=== PATIENT | male | born 1990 | race African-American/Black ===

== ENCOUNTER 2020-08-01 23:41 | Emergency (ER) | payer SELFPAY ==
[~2020-08-01] VITALS: Ht 180.3 cm; Wt 92.7 kg
[2020-08-02] MEDS ORDERED: FAMO-63 PO (00:07)
--- NOTE | 2020-08-02 00:08 | PHYS DOC ---
Past Medical History Past Medical History: Anxiety, GERD, Hypertension Past Surgical History: No Surgical History Smoking Status: Current Every Day Smoker Alcohol Use: Occasionally Drug Use: None General Adult EDM: Chief Complaint: CHEST PAIN HPI: HPI: 30-year-old male presents via EMS with report of lower substernal chest and epigastric discomfort that started at 2230 while laying down. Patient reportedly took 2 aspirins without relief. Patient does report history of anxiety and heartburn. Patient reports he looked for some Tums or Maalox to take but was unable to find any. Patient reports he did eat "spicy food "prior to symptoms starting. Patient therefore called 911 to be further evaluated and treated. Patient also reports headache upon arrival to the emergency department. Review of Systems: Review of Systems: Constitutional: Denies fever or chills Eyes: Denies redness or eye pain HENT: Denies nasal congestion or sore throat Respiratory: Denies cough or shortness of breath Cardiovascular: Reports chest pain; denies palpitations GI: Reports epigastric abdominal pain; denies nausea or vomiting : Denies dysuria or hematuria Musculoskeletal: Denies back pain or joint pain Integument: Denies rash or skin lesions Neurologic: Reports headache; denies focal weakness or sensory changes Complete systems were reviewed and found to be within normal limits, except as documented in this note. Heart Score: HEART Score for Chest Pain: HEART Score for Chest Pain Response (Comments) Value History Slighlty/Non-Suspicious 0 ECG Normal 0 Age < 45 0 Risk Factors 1 or 2 Risk Factors 1 Total 1 Risk Factors: Risk Factors: DM, Current or recent (<one month) smoker, HTN, HLP, family history of CAD, obesity. Risk Scores: Score 0 - 3: 2.5% MACE over next 6 weeks - Discharge Home Score 4 - 6: 20.3% MACE over next 6 weeks - Admit for Clinical Observation Score 7 - 10: 72.7% MACE over next 6 weeks - Early Invasive Strategies Current Medications: Current Medications Medications (Trade) Dose Ordered Sig/Maryellen Start Time Stop Time Status Last Admin Dose Admin Multi-Ingredient Mouthwash/Gargle (Gi Cocktail) 20 ml 1X ONCE 08/02/20 00:00 08/02/20 00:01 UNV Physical Exam: PE: Constitutional: Well developed, well nourished, no acute distress, non-toxic appearance HENT: Normocephalic, atraumatic Eyes: PERRL, EOMI, conjunctiva normal, no discharge Neck: Normal range of motion, no tenderness, supple, no meningeal signs Lungs & Thorax: No respiratory distress, equal chest rise and fall Abdomen: Soft, no tenderness, no guarding/rebound tenderness/distention Skin: Warm, dry, no erythema, no rash Extremities: No tenderness, ROM intact, no edema Neurologic: Alert and oriented X 3, normal motor function, normal sensory funct ion, no focal deficits noted Psychologic: Affect anxious, judgment normal EKG: EKG: @2351 Sinus tachycardia at 101bpm, NO ST elevation, QRS 82ms, QT/QTc 328/426ms Radiology/Procedures: Radiology/Procedures: PROCEDURE: CHEST AP ONLY XR CHEST 1V 08/01/2020 11:58 PM INDICATION: Chest pain COMPARISON: None available TECHNIQUE: Portable frontal view of the chest is provided. FINDINGS: The cardiomediastinal silhouette is within normal limits. Lungs are clear. There are no significant pleural effusions. There is no pulmonary vascular congestion. No pneumothorax. No suspicious osseous abnormality. IMPRESSION: There is no acute cardiopulmonary process. Electronically signed by: Tami Bailey MD (08/02/2020 12:13 AM) [facility] Course & Med Decision Making: Course & Med Decision Making Pertinent Labs and Imaging studies reviewed. (See chart for details) Patient presents with atypical chest discomfort. Symptoms possibly secondary to gastritis with anxiety component. Screening EKG stable. Chest x-ray without acute process. Symptomatic treatment provided with GI cocktail. Patient also complaining of a headache. Patient is neurologically intact. Afebrile. No meningeal signs noted. Tylenol therefore provided. Patient stable for discharge with outpatient follow-up with PCP/GI. GI referral provided. Discussed findings and plan with patient, who acknowledges understanding and agreement. Dragon Disclaimer: Dragon Disclaimer: This electronic medical record was generated, in whole or in part, using a voice recognition dictation system. Departure Departure Impression: Primary Impression: Atypical chest pain Disposition: 01 DC HOME SELF CARE/HOMELESS Condition: STABLE Referrals: NO PCP (PCP) CHARLES MARCOS MD Patient Instructions: Anxiety and Panic Attacks, Ired-qi-Yooz, Chest Pain (Nonspecific), Dwks-pm-Acbu, Gastritis, Adult, Sksv-ye-Zixt Scripts Famotidine (PEPCID) 20 Mg Tablet 20 MG PO BID PRN for GI SYMPTOMS, #14 TAB Prov: MARQUIS MAS DO 08/02/20 MARQUIS MAS DO Aug 02, 2020 00:08
--- NOTE | 2020-08-02 00:16 | RAD ---
XR CHEST 1V 08/01/2020 11:58 PM INDICATION: Chest pain COMPARISON: None available TECHNIQUE: Portable frontal view of the chest is provided. FINDINGS: The cardiomediastinal silhouette is within normal limits. Lungs are clear. There are no significant pleural effusions. There is no pulmonary vascular congestion. No pneumothora x. No suspicious osseous abnormality. IMPRESSION: There is no acute cardiopulmonary process. Electronically signed by: Tami Bailey MD (08/02/2020 12:13 AM) [facility]
[2020-08-02 00:25] VITALS: BP 126/80
[2020-08-02] MEDS ORDERED: LIDO:MAALOX 1:1 20 ML SINGLE DOSE. PO ONE (00:30)
[2020-08-02] MEDS ORDERED: ACETAMINOPHEN 500 MG TABLET PO ONE (00:30)
--- NOTE | 2020-08-02 03:08 | EKG ---
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
== END 2020-08-02 00:32 | disposition home or self-care (01) ==
LOC: ER 23:41
DX: R07.89 Other chest pain (principal); R10.13 Epigastric pain; R51.9 Headache, unspecified; F41.9 Anxiety disorder, unspecified; K21.9 Gastro-esophageal reflux disease without esophagitis; I10 Essential (primary) hypertension; F17.200 Nicotine dependence, unspecified, uncomplicated
CPT/HCPCS: 71045; 93005; 99283

== ENCOUNTER 2020-08-07 21:00 | Emergency (ER) | payer MEDICAID ==
[~2020-08-07] VITALS: Ht 180.3 cm; Wt 93.0 kg
[~2020-08-07 21:00] MED LIST: FAMO-63 PO
--- NOTE | 2020-08-07 21:40 | ED.ADGEN ---
Past Medical History Past Medical History: Anxiety, GERD, Hypertension Past Surgical History: No Surgical History Smoking Status: Current Every Day Smoker Alcohol Use: Occasionally Drug Use: None General Adult EDM: Chief Complaint: CHEST PAIN HPI: HPI: Patient is a 30 year old AA male who presents to the emergency department with complaints of chest pain since 1800 this evening. Patient reports he woke up with the pain. He reports that the pain is substernal and feels like sharp pressure. The patient reports that the pain increases when he lies back. He denies any nausea, vomiting, abdominal pain, diaphoresis, dizziness, fever, cough, sore throat, body aches, or fatigue. Patient states that he was here 6 days ago for the same problem. Patient reports a history of high blood pressu re, he did not take his medication today. Patient reports that his mother here a few weeks ago from what they believe is heart problems. Patient states his mother was 54 years old at the time of her . Patient currently rates the discomfort 8 out of 10 on the pain scale, he reports that the pain also increases with a deep breath but denies any shortness of breath. Review of Systems: Review of Systems: Complete ROS is negative unless otherwise noted in HPI. Current Medications: Current Medications Medications (Trade) Dose Ordered Sig/Maryellen Start Time Stop Time Status Last Admin Dose Admin Famotidine (Pepcid Vial) 20 mg 1X ONCE 08/07/20 22:30 08/07/20 22:31 DC Ketorolac Tromethamine (Toradol 30mg Vial) 30 mg 1X ONCE 08/07/20 22:30 08/07/20 22:31 DC Multi-Ingredient Mouthwash/Gargle (Gi Cocktail) 20 ml 1X ONCE 08/07/20 22:45 08/07/20 22:46 DC 08/07/20 22:35 20 ML Allergies: Allergies: Allergies Coded Allergies Type Severity Reaction Last Updated Verified No Known Drug Allergies 08/02/20 No Physical Exam: PE: See Above Constitutional: Well developed, well nourished, no acute distress, appears anxious HENT: Normocephalic, atraumatic, bilateral external ears normal, nose normal. [] Eyes: PERRLA, EOMI, conjunctiva normal, no discharge. [] Neck: Normal range of motion, no stridor. [] Cardiovascular:Heart rate regular rhythm Lungs & Thorax: Respirations even and unlabored, no retractions, no respiratory distress, chest nontender Abdomen: soft, epigastric tenderness to palpation, no rebound tenderness, guarding, abdomen is otherwise soft and nontender Skin: Warm, dry, no erythema, no rash. [] Extremities: No cyanosis, ROM intact, no edema. [] Neurologic: Alert and oriented X 3, no focal deficits noted. [] Psychologic: Affect anxious, judgement normal, mood normal. [] Current Patient Data: Labs: Laboratory Tests Test 08/07/20 21:17 White Blood Count 11.6 x10^3/uL (4.0-11.0) H Red Blood Count 4.69 x10^6/uL (4.30-5.70) Hemoglobin 13.1 g/dL (13.0-17.5) Hematocrit 39.1 % (39.0-53.0) Mean Corpuscular Volume 83 fL (79-100) Mean Corpuscular Hemoglobin 28 pg (25-35) Mean Corpuscular Hemoglobin Concent 34 g/dL (31-37) Red Cell Distribution Width 14.4 % (11.5-14.5) Platelet Count 301 x10^3/uL (140-400) Neutrophils (%) (Auto) 75 % (31-73) H Lymphocytes (%) (Auto) 19 % (24-48) L Monocytes (%) (Auto) 5 % (0-9) Eosinophils (%) (Auto) 0 % (0-3) Basophils (%) (Auto) 1 % (0-3) Neutrophils # (Auto) 8.7 x10^3/uL (1.8-7.7) H Lymphocytes # (Auto) 2.2 x10^3/uL (1.0-4.8) Monocytes # (Auto) 0.6 x10^3/uL (0.0-1.1) Eosinophils # (Auto) 0.0 x10^3/uL (0.0-0.7) Basophils # (Auto) 0.1 x10^3/uL (0.0-0.2) Sodium Level 143 mmol/L (136-145) Potassium Level 3.9 mmol/L (3.5-5.1) Chloride Level 105 mmol/L (98-107) Carbon Dioxide Level 25 mmol/L (21-32) Anion Gap 13 (6-14) Blood Urea Nitrogen 26 mg/dL (8-26) Creatinine 1.3 mg/dL (0.7-1.3) Estimated GFR (Cockcroft-Gault) 79.5 BUN/Creatinine Ratio 20 (6-20) Glucose Level 93 mg/dL (70-99) Calcium Level 9.0 mg/dL (8.5-10.1) Magnesium Level 2.1 mg/dL (1.8-2.4) Total Bilirubin 0.4 mg/dL (0.2-1.0) Aspartate Amino Transferase (AST) 28 U/L (15-37) Alanine Aminotransferase (ALT) 68 U/L (16-63) H Alkaline Phosphatase 80 U/L (46-116) Creatine Kinase 323 U/L (39-308) H Creatine Kinase MB (Mass) 1.4 ng/mL (0.0-3.6) Creatine Kinase MB Relative Index 0.4 % (0-4) Troponin I Quantitative < 0.017 ng/mL (0.000-0.055) Total Protein 7.7 g/dL (6.4-8.2) Albumin 3.9 g/dL (3.4-5.0) Albumin/Globulin Ratio 1.0 (1.0-1.7) Lipase 218 U/L (73-393) Laboratory Tests 08/07/20 21:17 Laboratory Tests 08/07/20 21:17 Vital Signs: Vital Signs Date Time Temp Pulse Resp B/P (MAP) Pulse Ox O2 Delivery O2 Flow Rate FiO2 08/07/20 21:13 98.3 76 16 171/81 (111) 100 Room Air 98.3 EKG: EK-sinus rhythm with leftward axis rate 87, no STEMI read by Dr. Barry [][] Heart Score: HEART Score for Chest Pain: HEART Score for Chest Pain Response (Comments) Value History Slighlty/Non-Suspicious 0 ECG Normal 0 Age < 45 0 Risk Factors >3 Risk Factors or Hx CAD 2 Troponin < Normal Limit 0 Total 2 Risk Factors: Risk Factors: DM, Current or recent (<one month) smoker, HTN, HLP, family history of CAD, obesity. Risk Scores: Score 0 - 3: 2.5% MACE over next 6 weeks - Discharge Home Score 4 - 6: 20.3% MACE over next 6 weeks - Admit for Clinical Observation Score 7 - 10: 72.7% MACE over next 6 weeks - Early Invasive Strategies Radiology/Procedures: Radiology/Procedures: PROCEDURE: CHEST AP ONLY XR CHEST 1V INDICATION: Reason: chest pain / Spl. Instructions: / History: . COMPARISON STUDY: 08/01/2020. FINDINGS: Lungs: Normal lung volume. No pulmonary mass or consolidation. The tracheobronc hial tree and hilar structures are normal. Pleura: No pleural effusion or pneumothorax. Heart and Mediastinum: The cardiomediastinal silhouette is normal. The great vessels of the thorax are normal. Bones and Soft Tissues: The bones and soft tissues are within normal limits. IMPRESSION: No acute cardiopulmonary process. Course & Med Decision Making: Course & Med Decision Making Pertinent Labs and Imaging studies reviewed. (See chart for details) With complaints of substernal chest pain that he described as burning that is worse when he lied down and also worse with the deep breath. EKG was unremarkable, chest x-ray is also unremarkable. CBC revealed a white blood cell count of 11.6 otherwise unremarkable; CMP revealed a day ALT of 68, CK of 323 troponin less than 0.017 otherwise unremarkable, patient's lipase was not elevated. His vital signs are stable throughout the emergency department stay. He was given a GI cocktail in the emergency department. He reported relief of the discomfort after taking this medication. Patient admitted that he had forgotten to take his medication today. He reported that he had been taking the Pepcid that was previously prescribed by Dr. Hernandez twice daily as directed every day until the day and that helps the pain subside. I provided patient with GERD diet instructions and encouraged him to follow-up with his primary care doctor or Dr. Martinez as previously recommended, encouraged him to return to the ER symptoms worsen or he develops a fever. Patient verbalized an understanding of home care, medications, follow-up, and return to ED instructions and was in agreement with the plan of care. [] Dragon Disclaimer: Dragon Disclaimer: This electronic medical record was generated, in whole or in part, using a voice recognition dictation system. Departure Departure Impression: Primary Impression: Atypical chest pain Additional Impression: GERD (gastroesophageal reflux disease) Disposition: 01 DC HOME SELF CARE/HOMELESS Condition: STABLE Referrals: NO PCP (PCP) Patient Instructions: Chest Pain (Nonspecific), Lsdn-tt-[id number], Diet for Gastroesophageal Reflux Disease, Adult, Tkns-ej-Yzji, Gastroesophageal Reflux Disease, Adult, Hvgy-ri-Nuka Additional Instructions: Continue taking the medication as prescribed by Dr. Hernandez, this medication is also available [id number]. Follow up with Dr. Martinez or your primary care doctor next week. Follow the diet instructions provided. Return to the ER if symptoms worsen or fever develops. Problem Qualifiers Additional Impression: GERD (gastroesophageal reflux disease) Esophagitis presence: esophagitis presence not specified Qualified Codes: K21.9 - Gastro-esophageal reflux disease without esophagitis MAHENDRA FERREIRA STORE PROTECTION SPECIALIST Aug 07, 2020 21:40
[2020-08-07 21:42] LABS: BASO # 0.1 x10^3/uL (0.0-0.2); BASO % 1 % (0-3); EOS % 0 % (0-3); HEMATOCRIT 39.1 % (39.0-53.0); HEMOGLOBIN 13.1 g/dL (13.0-17.5); LYMPH # 2.2 x10^3/uL (1.0-4.8); LYMPH % 19 % (24-48); MEAN CORPUSCULAR HEMOGLOBIN 28 pg (25-35); MEAN CORPUSCULAR HGB CONC 34 g/dL (31-37); MEAN CORPUSCULAR VOLUME 83 fL (79-100); MONO # 0.6 x10^3/uL (0.0-1.1); MONO % 5 % (0-9); NEUT # 8.7 x10^3/uL (1.8-7.7); NEUT % 75 % (31-73); PLATELET COUNT 301 x10^3/uL (140-400); RED BLOOD COUNT 4.69 x10^6/uL (4.30-5.70); RED CELL DISTRIBUTION WIDTH 14.4 % (11.5-14.5); WHITE BLOOD COUNT 11.6 x10^3/uL (4.0-11.0)
[2020-08-07 21:52] LABS: CREATININE 1.3 mg/dL (0.7-1.3); GFR 79.5; POTASSIUM 3.9 mmol/L (3.5-5.1)
[2020-08-07 21:58] LABS: ALBUMIN 3.9 g/dL (3.4-5.0); MAGNESIUM 2.1 mg/dL (1.8-2.4); TOTAL BILIRUBIN 0.4 mg/dL (0.2-1.0); TOTAL PROTEIN 7.7 g/dL (6.4-8.2)
--- NOTE | 2020-08-07 22:03 | RAD ---
XR CHEST 1V INDICATION: Reason: chest pain / Spl. Instructions: / History: . COMPARISON STUDY: 08/01/2020. FINDINGS: Lungs: Normal lung volume. No pulmonary mass or consolidation. The tracheobronchial tree and hilar st ructures are normal. Pleura: No pleural effusion or pneumothorax. Heart and Mediastinum: The cardiomediastinal silhouette is normal. The great vessels of the thorax ar e normal. Bones and Soft Tissues: The bones and soft tissues are within normal limits. IMPRESSION: No acute cardiopulmonary process. Electronically signed by: Rigo Corona MD (08/07/2020 10:01 PM) [facility]
[2020-08-07] MEDS ORDERED: KETOROLAC 30 MG/ML VIAL. IV ONE (22:30)
[2020-08-07] MEDS ORDERED: FAMOTIDINE 20 MG/2 ML VIAL IVP ONE (22:30)
[2020-08-07] MEDS ORDERED: LIDO:MAALOX 1:1 20 ML SINGLE DOSE. SWSW ONE (22:45)
[2020-08-07 23:00] VITALS: BP 150/83
--- NOTE | 2020-08-10 11:43 | EKG ---
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
== END 2020-08-07 23:31 | disposition home or self-care (01) ==
LOC: ER 21:00
DX: K21.9 Gastro-esophageal reflux disease without esophagitis (principal); R07.89 Other chest pain; R10.13 Epigastric pain; F41.9 Anxiety disorder, unspecified; I10 Essential (primary) hypertension; F17.200 Nicotine dependence, unspecified, uncomplicated
CPT/HCPCS: 36415; 71045; 80053; 82553; 83690; 83735; 84484; 85025; 93005; 99285

== ENCOUNTER 2021-04-22 08:29 | Observation (INO) | payer MEDICAID, OTHER ==
[~2021-04-22] VITALS: Ht 180.3 cm; Wt 105.4 kg
--- NOTE | 2021-04-22 08:57 | PHYS DOC ---
Past Medical History Past Medical History: Anxiety, GERD, Hypertension Past Surgical History: No Surgical History Smoking Status: Current Every Day Smoker Alcohol Use: Occasionally Drug Use: None General Adult EDM: Chief Complaint: ABDOMINAL PAIN HPI: HPI: 30 yo AA M PMH Anxiety, GERD, Hypertension (on nifedipine) and tobacco use presents to the ED with complaints of intermittent, upper abdominal pain for the past 3 days stating that is worse with cigarettes and eating fried pork chops last night. Reports associated nausea. States he has not had a bowel movement in the past 2 days, was yellow-brown in color. Reports history of pancreatitis 45 years ago secondary to alcohol abuse and states his symptoms currently feel like his prior pancreatitis. Last drink was on Tuesday night. Drinks alcohol on the weekends, no history of alcohol trauma. Denies any history of IV drug use or marijuana use. Review of Systems: Review of Systems: Constitutional: Denies fever or chills. [] Eyes: Denies change in visual acuity. [] HENT: Denies nasal congestion or sore throat. [] Respiratory: Denies cough or shortness of breath. [] Cardiovascular: Denies chest pain or edema. [] GI: Denies vomiting, bloody stools or diarrhea. [] : Denies dysuria or hematuria Musculoskeletal: Denies back pain or joint pain. [] Integument: Denies rash or diaphoresis Neurologic: Denies headache, focal weakness or sensory changes. [] Endocrine: Denies polyuria or polydipsia. [] Lymphatic: Denies swollen glands. [] Psychiatric: Denies depression or anxiety. [] Heart Score: C/O Chest Pain: No Risk Factors: Risk Factors: DM, Current or recent (<one month) smoker, HTN, HLP, family history of CAD, obesity. Risk Scores: Score 0 - 3: 2.5% MACE over next 6 weeks - Discharge Home Score 4 - 6: 20.3% MACE over next 6 weeks - Admit for Clinical Observation Score 7 - 10: 72.7% MACE over next 6 weeks - Early Invasive Strategies Allergies: Allergies: Allergies Coded Allergies Type Severity Reaction Last Updated Verified No Known Drug Allergies 08/02/20 No Physical Exam: PE: Constitutional: Afebrile, well nourished, obese, calm at rest but discomfort with movement and abdominal exam HENT: Normocephalic, atraumatic, Eyes: EOMI, conjunctiva normal, no discharge. Neck: Normal range of motion, supple, Cardiovascular: S1/2 present, regular rhythm Lungs & Thorax: Speaking in full sentences, bilateral equal chest rise, no tachypnea or increased work of breathing Abdomen: soft, tender epigastric region with no Perez sign, no rigidity or guarding, no active emesis Skin: Warm, dry, no erythema, no rash. [] Back: No tenderness, no CVA tenderness. [] Extremities: No tenderness, no cyanosis, Neurologic: Alert and oriented X 3, normal motor function, normal sensory function, no focal deficits noted. [] Psychologic: Affect normal, judgement normal, mood normal. [] EKG: EKG: Sinus rhythm 70 bpm, left axis deviation, normal intervals, T wave inversion lead III, no ST elevations or ST depressions Radiology/Procedures: Radiology/Procedures: []IMAGING REPORT Signed PATIENT: JOANN AVILES ACCOUNT: [id number] : 1990 LOCATION: ER AGE: 30 SEX: M EXAM STATUS: REG ER ORD. PHYSICIAN: LACHELLE TOLENTINO DO REASON: abd pain, constipation PROCEDURE: ABDOMEN SUPINE & UPRIGHT Site ID: [id number] EXAMINATION: XR ABDOMEN 2V. HISTORY: 30 years Male Reason: abd pain, constipation COMPARISON: None. FINDINGS: There is mild to moderate amount of fecal material seen in the right colon mostly. No dilated bowel loops seen to suggest obstruction. Nonspecific minimal gaseous distention in small bowel loop in the mid abdomen is seen of questionable significance. No suggestion of urinary tract stones. IMPRESSION: No acute process. Electronically signed by: Holly Crooks MD (04/22/2021 11:11 AM) [id number] DICTATED and SIGNED BY: HOLLY CROOKS MD DATE: 04/22/21 [id number] IMAGING REPORT Signed PATIENT: JOANN AVILES ACCOUNT: [id number] : 1990 LOCATION: ER AGE: 30 SEX: M EXAM STATUS: REG ER ORD. PHYSICIAN: LACHELLE TOLENTINO DO REASON: abd pain PROCEDURE: PORTABLE CHEST 1V XR CHEST 1V History: Abdominal pain Comparison: 08/07/2020 Technique: AP radiograph of the chest. Findings: The lungs are adequately and symmetrically inflated. No airspace consolidation, pleural effusion or pneumothorax. The cardiomediastinal silhouette and pulmonary vasculature are within normal limits. No acute osseous abnormality. Soft tissues are unremarkable. Impression: 1. No acute cardiopulmonary process. Electronically signed by: Matthew Franks MD (04/22/2021 9:16 AM) [id number] DICTATED and SIGNED BY: MATTHEW FRANKS MD DATE: 04/22/21 [id number] IMAGING REPORT Signed PATIENT: JOANN AVILES ACCOUNT: [id number] : 1990 LOCATION: ER AGE: 30 SEX: M EXAM STATUS: REG ER ORD. PHYSICIAN: LACHELLE TOLENTINO DO REASON: abd pain, pancreatitis PROCEDURE: CT ABD PELV W/ IV CONTRST ONLY EXAMINATION: CT abdomen and pelvis with IV contrast. INDICATION:30 years, Male, abdominal pain. TECHNIQUE: Axial CT images of the abdomen and pelvis were obtained. Coronal and sagittal reformatted performed. COMPARISON: None. Exposure: One or more of the following individualized dose reduction techniques were utilized for this examination: 1. Automated exposure control 2. Adjustment of the mA and/or kV according to patient size 3. Use of iterative reconstruction technique. FINDINGS: LOWER CHEST: Unremarkable. ABDOMEN/PELVIS: Liver, spleen, gallbladder, biliary ducts, adrenals and kidneys are unremarkable. No bowel obstruction or wall thickening. Normal appendix. Normal caliber abdominal aorta. Mesenteric arteries and portal vein are patent. No pneumoperitoneum or ascites. No lymphadenopathy in the abdomen or pelvis by size criteria. Normal urinary bladder. Unremarkable prostate. MUSCULOSKELETAL: No acute osseous process. Small fat-containing umbilical hernia. IMPRESSION: No acute intra-abdominal findings. Electronically signed by: Hany Doyle MD (04/22/2021 1:12 PM) [facility] DICTATED and SIGNED BY: HANY DOYLE MD DATE: 04/22/21 [id number] Course & Med Decision Making: Course & Med Decision Making Pertinent Labs and Imaging studies reviewed. (See chart for details) Concern for abdominal pain in the setting of acute pancreatitis, does not meet sepsis criteria. CT abdomen pelvis w/no acute process. Patient made n.p.o. was provided with analgesia. Will admit for further medical management. Patient stable at time of admission and agrees with this plan. I have spoken with the patient and/or caregivers. I have explained the patient's condition, diagnosis and treatment plan based on the information available to me at this time. I have answered the patient's and/or caregivers questions and answered any concerns. The patient and/or caregivers have as good an understanding of the patient's diagnosis, condition and treatment plan as can be expected at this point. The patient has been stabilized within the capability of the emergency department. The patient will be transported for further care and management or will be moved to an observation or inpatient service. I have communicated with the staff or medical practitioner taking over this patient's care. Reina Disclaimer: Reina Disclaimer: This electronic medical record was generated, in whole or in part, using a voice recognition dictation system. Departure Departure Impression: Primary Impression: Acute pancreatitis Disposition: ADMITTED INPATIENT Admitting Physician: SUZI (Dr. Romero) Condition: STABLE Referrals: NO PCP (PCP) LACHELLE TOLENTINO DO Apr 22, 2021 08:57
--- NOTE | 2021-04-22 09:18 | RAD ---
XR CHEST 1V History: Abdominal pain Comparison: 08/07/2020 Technique: AP radiograph of the chest. Findings: The lungs are adequately and symmetrically inflated. No airspace consolidation, pleural effusion or p neumothorax. The cardiomediastinal silhouette and pulmonary vasculature are within normal limits. No acute osseous abnormality. Soft tissues are unremarkable. Impression: 1. No acute cardiopulmonary process. Electronically signed by: Matthew Serna MD (04/22/2021 9:16 AM) [id number]
[2021-04-22 10:02] LABS: BARBITURATES NEG (NEG); BENZODIAZEPINES NEG (NEG); CANNABINOIDS NEG (NEG); COCAINE NEG (NEG); METHADONE NEG (NEG); OPIATES NEG (NEG); PHENCYCLIDINE NEG (NEG)
[2021-04-22 10:03] LABS: AMPHETAMINE/METHAMPHETAMINE NEG (NEG)
[2021-04-22 10:22] LABS: BASO % 1 % (0-3); EOS # 0.1 x10^3/uL (0.0-0.7); EOS % 1 % (0-3); HEMATOCRIT 41.6 % (39.0-53.0); HEMOGLOBIN 14.1 g/dL (13.0-17.5); LYMPH # 2.7 x10^3/uL (1.0-4.8); LYMPH % 35 % (24-48); MEAN CORPUSCULAR HEMOGLOBIN 29 pg (25-35); MEAN CORPUSCULAR HGB CONC 34 g/dL (31-37); MEAN CORPUSCULAR VOLUME 86 fL (79-100); MONO # 0.5 x10^3/uL (0.0-1.1); MONO % 6 % (0-9); NEUT # 4.5 x10^3/uL (1.8-7.7); NEUT % 58 % (31-73); PLATELET COUNT 264 x10^3/uL (140-400); RED BLOOD COUNT 4.81 x10^6/uL (4.30-5.70); RED CELL DISTRIBUTION WIDTH 14.2 % (11.5-14.5); WHITE BLOOD COUNT 7.7 x10^3/uL (4.0-11.0)
[2021-04-22 10:36] LABS: CALCIUM 8.7 mg/dL (8.5-10.1); CREATININE 1.3 mg/dL (0.7-1.3); GFR 79.5; POTASSIUM 3.7 mmol/L (3.5-5.1)
[2021-04-22 10:43] LABS: ALBUMIN 3.4 g/dL (3.4-5.0); DIRECT BILIRUBIN 0.1 mg/dL (0.0-0.2); TOTAL BILIRUBIN 0.3 mg/dL (0.2-1.0); TOTAL PROTEIN 7.6 g/dL (6.4-8.2)
--- NOTE | 2021-04-22 11:13 | RAD ---
Site ID: [id number] EXAMINATION: XR ABDOMEN 2V. HISTORY: 30 years Male Reason: abd pain, constipation COMPARISON: None. FINDINGS: There is mild to moderate amount of fecal material seen in the right colon mostly. No dilated bowel l oops seen to suggest obstruction. Nonspecific minimal gaseous distention in small bowel loop in the m id abdomen is seen of questionable significance. No suggestion of urinary tract stones. IMPRESSION: No acute process. Electronically signed by: Terrell Crooks MD (04/22/2021 11:11 AM) [id number]
[2021-04-22] MEDS ORDERED: IV NORMAL SALINE 1000ML BAG 1,000 ML IV SCH ×2 (11:30→13:00)
[2021-04-22] MEDS ORDERED: CONTRAST GIVEN. MC PRN (12:30)
[2021-04-22] MEDS ORDERED: HYDROmorphone 2 MG/ML VIAL IVP ONE (12:30)
[2021-04-22] MEDS ORDERED: IOHEXOL 300 MG/ML 100ML VIAL. IV ONE (12:30)
--- NOTE | 2021-04-22 13:14 | RAD ---
EXAMINATION: CT abdomen and pelvis with IV contrast. INDICATION:30 years, Male, abdominal pain. TECHNIQUE: Axial CT images of the abdomen and pelvis were obtained. Coronal and sagittal reformatted performed. COMPARISON: None. Exposure: One or more of the following individualized dose reduction techniques were utilized for thi s examination: 1. Automated exposure control 2. Adjustment of the mA and/or kV according to patient size 3. Use of iterative reconstruction technique. FINDINGS: LOWER CHEST: Unremarkable. ABDOMEN/PELVIS: Liver, spleen, gallbladder, biliary ducts, adrenals and kidneys are unremarkable. No bowel obstructio n or wall thickening. Normal appendix. Normal caliber abdominal aorta. Mesenteric arteries and portal vein are patent. No pneumoperitoneum or ascites. No lymphadenopathy in the abdomen or pelvis by size criteria. Normal urinary bladder. Unremarkable prostate. MUSCULOSKELETAL: No acute osseous process. Small fat-containing umbilical hernia. IMPRESSION: No acute intra-abdominal findings. Electronically signed by: Jigna Doyle MD (04/22/2021 1:12 PM) [facility]
[2021-04-22] MEDS ORDERED: IV NORMAL SALINE 1000ML BAG 1,000 ML IV ONE (13:15)
--- NOTE | 2021-04-22 14:37 | EKG ---
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
[2021-04-22] MEDS ORDERED: SENNOSIDES 8.6 MG TABLET PO PRN (15:45)
[2021-04-22] MEDS ORDERED: ONDANSETRON PF 4 MG/2 ML VIAL. IVP PRN (15:45)
[2021-04-22] MEDS ORDERED: ACETAMINOPHEN 325 MG TABLET. PO PRN (15:45)
[2021-04-22] MEDS ORDERED: DOCUSATE SODIUM 100 MG CAPSULE. PO PRN (15:45)
[2021-04-22] MEDS ORDERED: DEXTROSE 50% 25 GM / 50ML DISP.SYRIN. IV PRN (15:45)
[2021-04-22] MEDS ORDERED: MORPHINE SULFATE 2 MG/ML INJ. IV PRN (15:45)
[2021-04-22] MEDS ORDERED: oxyCODONE/APAP 5/325 1 TAB TABLET PO PRN (15:45)
[2021-04-22] MEDS ORDERED: PROCHLORPERAZINE 10 MG/2 ML VIAL. IV PRN (15:45)
--- NOTE | 2021-04-22 15:46 | PDOC1 ---
History and Physical Date of Service: DOS: DATE: 04/22/21 TIME: 15:38 Chief Complaint: Chief Complain: Abdominal pain History of Present Illness: HPI: 30-year-old male with history of anxiety, GERD, hypertension, tobacco and alcohol use who comes in with complaints of intermittent, epigastric abdominal pain that started on Tuesday. Worsens with smoking and eating fried foods that worsened last night. Last alcoholic drink was on Tuesday. Reports associated nausea. States he has not had a bowel movement in the past 2 days, was yellow-brown in color. Reports history of pancreatitis about 5 years ago secondary to alcohol abuse and states his symptoms currently feel like his prior pancreatitis. Last drink was on Tuesday night. Drinks alcohol on the weekends, no history of alcohol trauma. Denies any history of IV drug use or marijuana use. Pain was 10 out of 10 on Tuesday but now it has subsided with medication. Past Medical/Surgical History: PMH/PSH: Past Medical History: Anxiety, GERD, Hypertension Past Surgical History: No Surgical History Allergies: Allergies: Coded Allergies: No Known Drug Allergies (Unverified , 08/02/20) Family History: Family History: Reviewed with no relevant findings Social History: Social History: Smoking Status: Current Every Day Smoker Alcohol Use: Occasionally Drug Use: None Current Medications: Current Medications Current Medications Sodium Chloride 1,000 ml @ 100 drops/ hr Q24H IV ; Start 04/22/21 at 11:30; Stop 04/23/21 at 11:29 Hydromorphone HCl (Dilaudid) 1 mg 1X ONCE IVP Last administered on 04/22/21at 13:00; Start 04/22/21 at 12:30; Stop 04/22/21 at 12:31; Status DC Iohexol (Omnipaque 300 Mg/ml) 75 ml 1X ONCE IV Last administered on 04/22/21at 12:47; Start 04/22/21 at 12:30; Stop 04/22/21 at 12:31; Status DC Info (CONTRAST GIVEN -- Rx MONITORING) 1 each PRN DAILY PRN MC SEE COMMENTS; Start 04/22/21 at 12:30; Stop 04/24/21 at 12:29 Sodium Chloride 1,000 ml @ 100 mls/hr ONCE IV ; Start 04/22/21 at 13:00 Sodium Chloride 1,000 ml @ 100 mls/hr 1X ONCE IV Last administered on at 13:15; Start 04/22/21 at 13:15; Stop 04/22/21 at 23:14 Active Scripts Active Pepcid (Famotidine) 20 Mg Tablet 20 Mg PO BID PRN ROS: Review of Systems Review of System REVIEW OF SYSTEMS: GENERAL: Denies weakness SKIN: No bruising, hair changes or rashes. EYES: No blurred, double or loss of vision. NOSE AND THROAT: No history of nosebleeds, hoarseness or sore throat. HEART: No history of palpitations, chest pain or shortness of breath on exertion. LUNGS: Denies cough, hemoptysis, wheezing or shortness of breath. GASTROINTESTINAL: Positive for abdominal pain and nausea GENITOURINARY: No history of frequency, urgency, hesitancy or nocturia. NEUROLOGIC: Denies history of numbness, tingling, or tremor. PSYCHIATRIC: No history of panic, anxiety or depression. ENDOCRINE: No history of heat or cold intolerance, polyuria or polydipsia. EXTREMITIES: Denies joint pain, pain on walking or stiffness. Physical Exam: Vital Signs: Vital Signs Date Time Temp Pulse Resp B/P (MAP) Pulse Ox O2 Delivery O2 Flow Rate FiO2 04/22/21 10:54 62 18 96/52 (67) 98 Room Air 04/22/21 08:50 98.8 98.8 Physcial Exam: General: Well developed, well nourished, no acute distress, well appearing HEENT: Pupils equally round and reactive to light, EOMI, no discharge, normal conjunctiva Neck: Supple, no nuchal rigidity, no JVD, trachea midline, no tenderness Cardiac: RRR, no murmurs, no gallops, no rubs Chest/Lungs: CTAB, no wheeze, no rhonchi, no crackles Abdomen: soft, non-distended, no guarding, no peritoneal signs, epigastric tenderness Back: No tenderness Extremities: no edema, pulses intact, non-tender,capillary refill <3 sec bilateral upper and lower extremities, Neuro: Alert and oriented x 4, no focal deficits, normal speech Labs: Labs: Laboratory Tests Test 04/22/21 08:52 04/22/21 10:10 Urine Opiates Screen Neg (NEG) Urine Methadone Screen Neg (NEG) Urine Barbiturates Neg (NEG) Urine Phencyclidine Screen Neg (NEG) Urine Amphetamine/Methamphetamine Neg (NEG) Urine Benzodiazepines Screen Neg (NEG) Urine Cocaine Screen Neg (NEG) Urine Cannabinoids Screen Neg (NEG) Urine Ethyl Alcohol Neg (NEG) White Blood Count 7.7 x10^3/uL (4.0-11.0) Red Blood Count 4.81 x10^6/uL (4.30-5.70) Hemoglobin 14.1 g/dL (13.0-17.5) Hematocrit 41.6 % (39.0-53.0) Mean Corpuscular Volume 86 fL (79-100) Mean Corpuscular Hemoglobin 29 pg (25-35) Mean Corpuscular Hemoglobin Concent 34 g/dL (31-37) Red Cell Distribution Width 14.2 % (11.5-14.5) Platelet Count 264 x10^3/uL (140-400) Neutrophils (%) (Auto) 58 % (31-73) Lymphocytes (%) (Auto) 35 % (24-48) Monocytes (%) (Auto) 6 % (0-9) Eosinophils (%) (Auto) 1 % (0-3) Basophils (%) (Auto) 1 % (0-3) Neutrophils # (Auto) 4.5 x10^3/uL (1.8-7.7) Lymphocytes # (Auto) 2.7 x10^3/uL (1.0-4.8) Monocytes # (Auto) 0.5 x10^3/uL (0.0-1.1) Eosinophils # (Auto) 0.1 x10^3/uL (0.0-0.7) Basophils # (Auto) 0.0 x10^3/uL (0.0-0.2) Sodium Level 139 mmol/L (136-145) Potassium Level 3.7 mmol/L (3.5-5.1) Chloride Level 103 mmol/L (98-107) Carbon Dioxide Level 26 mmol/L (21-32) Anion Gap 10 (6-14) Blood Urea Nitrogen 16 mg/dL (8-26) Creatinine 1.3 mg/dL (0.7-1.3) Estimated GFR (Cockcroft-Gault) 79.5 Glucose Level 97 mg/dL (70-99) Calcium Level 8.7 mg/dL (8.5-10.1) Total Bilirubin 0.3 mg/dL (0.2-1.0) Direct Bilirubin 0.1 mg/dL (0.0-0.2) Aspartate Amino Transf (AST/SGOT) 33 U/L (15-37) Alanine Aminotransferase (ALT/SGPT) 48 U/L (16-63) Alkaline Phosphatase 87 U/L (46-116) Creatine Kinase 276 U/L (39-308) Troponin I Quantitative 0.017 ng/mL (0.000-0.055) Total Protein 7.6 g/dL (6.4-8.2) Albumin 3.4 g/dL (3.4-5.0) Lipase 1527 U/L (73-393) Laboratory Tests Test 04/22/21 08:52 04/22/21 10:10 Urine Opiates Screen Neg (NEG) Urine Methadone Screen Neg (NEG) Urine Barbiturates Neg (NEG) Urine Phencyclidine Screen Neg (NEG) Urine Amphetamine/Methamphetamine Neg (NEG) Urine Benzodiazepines Screen Neg (NEG) Urine Cocaine Screen Neg (NEG) Urine Cannabinoids Screen Neg (NEG) Urine Ethyl Alcohol Neg (NEG) White Blood Count 7.7 x10^3/uL (4.0-11.0) Red Blood Count 4.81 x10^6/uL (4.30-5.70) Hemoglobin 14.1 g/dL (13.0-17.5) Hematocrit 41.6 % (39.0-53.0) Mean Corpuscular Volume 86 fL (79-100) Mean Corpuscular Hemoglobin 29 pg (25-35) Mean Corpuscular Hemoglobin Concent 34 g/dL (31-37) Red Cell Distribution Width 14.2 % (11.5-14.5) Platelet Count 264 x10^3/uL (140-400) Neutrophils (%) (Auto) 58 % (31-73) Lymphocytes (%) (Auto) 35 % (24-48) Monocytes (%) (Auto) 6 % (0-9) Eosinophils (%) (Auto) 1 % (0-3) Basophils (%) (Auto) 1 % (0-3) Neutrophils # (Auto) 4.5 x10^3/uL (1.8-7.7) Lymphocytes # (Auto) 2.7 x10^3/uL (1.0-4.8) Monocytes # (Auto) 0.5 x10^3/uL (0.0-1.1) Eosinophils # (Auto) 0.1 x10^3/uL (0.0-0.7) Basophils # (Auto) 0.0 x10^3/uL (0.0-0.2) Sodium Level 139 mmol/L (136-145) Potassium Level 3.7 mmol/L (3.5-5.1) Chloride Level 103 mmol/L (98-107) Carbon Dioxide Level 26 mmol/L (21-32) Anion Gap 10 (6-14) Blood Urea Nitrogen 16 mg/dL (8-26) Creatinine 1.3 mg/dL (0.7-1.3) Estimated GFR (Cockcroft-Gault) 79.5 Glucose Level 97 mg/dL (70-99) Calcium Level 8.7 mg/dL (8.5-10.1) Total Bilirubin 0.3 mg/dL (0.2-1.0) Direct Bilirubin 0.1 mg/dL (0.0-0.2) Aspartate Amino Transf (AST/SGOT) 33 U/L (15-37) Alanine Aminotransferase (ALT/SGPT) 48 U/L (16-63) Alkaline Phosphatase 87 U/L (46-116) Creatine Kinase 276 U/L (39-308) Troponin I Quantitative 0.017 ng/mL (0.000-0.055) Total Protein 7.6 g/dL (6.4-8.2) Albumin 3.4 g/dL (3.4-5.0) Lipase 1527 U/L (73-393) Images: Images PROCEDURE: PORTABLE CHEST 1V Impression: 1. No acute cardiopulmonary process. PROCEDURE: CT ABD PELV W/ IV CONTRST ONLY EXAMINATION: CT abdomen and pelvis with IV contrast. INDICATION:30 years, Male, abdominal pain. TECHNIQUE: Axial CT images of the abdomen and pelvis were obtained. Coronal and sagittal reformatted performed. COMPARISON: None. Exposure: One or more of the following individualized dose reduction techniques were utilized for this examination: 1. Automated exposure control 2. Adjustment of the mA and/or kV according to patient size 3. Use of iterative reconstruction technique. FINDINGS: LOWER CHEST: Unremarkable. ABDOMEN/PELVIS: Liver, spleen, gallbladder, biliary ducts, adrenals and kidneys are unremarkable. No bowel obstruction or wall thickening. Normal appendix. Normal caliber abdominal aorta. Mesenteric arteries and portal vein are patent. No pneumoperitoneum or ascites. No lymphadenopathy in the abdomen or pelvis by size criteria. Normal urinary bladder. Unremarkable prostate. MUSCULOSKELETAL: No acute osseous process. Small fat-containing umbilical hernia. IMPRESSION: No acute intra-abdominal findings. Assessment/Plan Assessment/Plan Acute abdominal pain concerning for acute pancreatitis. Elevated lipase Alcohol misuse Tobacco misuse Admit to hospitalist service for further management Review for recent medication changes Reviewed tobacco or alcohol abuse Obtain lipid panel If dilated CBD or intrahepatic biliary ducts, consider GI consult and MRCP Clear liquid diet IV morphine PRN SCD and ambulation for DVT prophylaxis Protonix GI prophylaxis ADA diet CODE STATUS full Discussed with RN and SW Disposition inpatient management as above DPOA: Sister, Karine Harvey Smoking cessation: Total time spent was 12 minutes in face to face counseling. Patient has agreed to consider nicotine patches/gum or to start on Varnicline when discharged Justifications for Admission Other Justification PA STEWARD MD Apr 22, 2021 15:46
[2021-04-22] MEDS: MORPHINE SULFATE 2 MG/ML INJ. IVP PRN ×2 (15:57→22:49)
[2021-04-22] MEDS: IV NORMAL SALINE 1000ML BAG 1,000 ML IV SCH ×2 (16:00→22:49)
[2021-04-22 16:26] VITALS: BP 115/68
[2021-04-22] MEDS ORDERED: FAMOTIDINE 20 MG TABLET. PO PRN (18:00)
[2021-04-22 19:00] VITALS: BP 105/61
[2021-04-22] MEDS: oxyCODONE/APAP 5/325 1 TAB TABLET PO PRN (19:47)
[2021-04-22 23:00] VITALS: BP 124/77
[2021-04-23 03:00] VITALS: BP 116/63
[2021-04-23] MEDS: oxyCODONE/APAP 5/325 1 TAB TABLET PO PRN ×2 (06:31→09:56)
[2021-04-23] MEDS: IV NORMAL SALINE 1000ML BAG 1,000 ML IV SCH (06:32)
[2021-04-23 07:00] VITALS: BP 129/71
[2021-04-23] MEDS ORDERED: PANTOPRAZOLE 40 MG TABLET.DR. PO SCH (07:30)
[2021-04-23 07:39] LABS: BASO % 0 % (0-3); EOS # 0.1 x10^3/uL (0.0-0.7); EOS % 1 % (0-3); HEMATOCRIT 40.2 % (39.0-53.0); HEMOGLOBIN 13.6 g/dL (13.0-17.5); LYMPH # 2.6 x10^3/uL (1.0-4.8); LYMPH % 41 % (24-48); MEAN CORPUSCULAR HEMOGLOBIN 29 pg (25-35); MEAN CORPUSCULAR HGB CONC 34 g/dL (31-37); MEAN CORPUSCULAR VOLUME 87 fL (79-100); MONO # 0.3 x10^3/uL (0.0-1.1); MONO % 5 % (0-9); NEUT # 3.3 x10^3/uL (1.8-7.7); NEUT % 52 % (31-73); PLATELET COUNT 239 x10^3/uL (140-400); RED BLOOD COUNT 4.64 x10^6/uL (4.30-5.70); RED CELL DISTRIBUTION WIDTH 14.3 % (11.5-14.5); WHITE BLOOD COUNT 6.3 x10^3/uL (4.0-11.0)
[2021-04-23 07:51] LABS: CALCIUM 8.1 mg/dL (8.5-10.1); CREATININE 1.2 mg/dL (0.7-1.3); GFR 87.2; MAGNESIUM 1.9 mg/dL (1.8-2.4); PHOSPHORUS 3.6 mg/dL (2.6-4.7); POTASSIUM 3.8 mmol/L (3.5-5.1)
[2021-04-23] MEDS ORDERED: SERTRALINE 50 MG TABLET. PO SCH (09:00)
--- NOTE | 2021-04-23 10:06 | DISCH ---
DISCHARGE INSTRUCTIONS Condition on Discharge Condition on Discharge: Stable Activity After Discharge Activity Instructions for Disc: Activity as tolerated Exercise Instruction after Dis: Walk 15 min, 3 x per day Driving Instructions after Dis: Do not drive today Diet after Discharge Diet after Discharge: Regular Follow-Up Follow up with: PCP within 2 weeks of discharge PA STEWARD MD Apr 23, 2021 10:06
[2021-04-23 11:05] VITALS: BP 119/74
--- NOTE | 2021-04-23 11:23 | NUR ---
SW following. Discussed with RN, pt from home, room air, regular diet. Rapid COVID-19 negative. Discharge order for home with self care. RN advised no SW needs.
--- NOTE | 2021-04-23 14:02 | NUR ---
pt was discharged home with self care. no meds were prescribed for pt at home. he was given info on a GERD diet and to take pepcid if he needed to at home for GI upset. was walked out to the main entrance and picked up by a friend. Angel Koenig RN
--- NOTE | 2021-05-03 16:40 | PDOC3 ---
[facility]-Discharge Summary Date of Admission: Date of Admission: Apr 22, 2021 Date of Discharge: Date of Discharge: Apr 23, 2021 Discharge Diagnosis: Discharge Diagnosis: Acute abdominal pain concerning for acute pancreatitis. Elevated lipase Alcohol misuse Tobacco misuse Hospital Course: Hospital Course: 30-year-old male with history of anxiety, GERD, hypertension, tobacco and alcohol use who comes in with complaints of intermittent, epigastric abdominal pain that started on Tuesday. Worsens with smoking and eating fried foods that worsened last night. Last alcoholic drink was on Tuesday. Reports associated nausea. States he has not had a bowel movement in the past 2 days, was yellow-brown in color. Reports history of pancreatitis about 5 years ago secondary to alcohol abuse and states his symptoms currently feel like his prior pancreatitis. Last drink was on Tuesday night. Drinks alcohol on the weekends, no history of alcohol trauma. Denies any history of IV drug use or marijuana use. Pain was 10 out of 10 on Tuesday but now it has subsided with medication. By day of discharge, pt was clinically stable and ready for discharge. Rest of hospital course was uneventful Disposition: Disposition/Orders: D/C to Home Activity: Activity: Resume previous activity Diet: Diet: Soft Medications: Home Meds Active Scripts Famotidine (PEPCID) 20 Mg Tablet, 20 MG PO BID PRN for GI SYMPTOMS, #14 TAB Prov:MARQUIS MAS DO 08/02/20 Scheduled PRN Famotidine (Pepcid), 20 MG PO BID PRN for GI SYMPTOMS Total Time: Total Time: Total time spent was 32 minutes in preparing scripts, discharge planning with SW and RN, and preparing this discharge summary. Patient seen and examined on day of discharge. Justicifation of Admission Dx: Justifications for Admission: Justification of Admission Dx: Yes (Acute pancreatitis) PA STEWARD MD May 03, 2021 16:40
== END 2021-04-23 12:35 | disposition home or self-care (01) ==
LOC: ER 08:29 → INTOOBSV 10:52 → 5 SOUTH 10:52
PROVIDERS: ADMIT Internal Medicine; ATTEND Internal Medicine
DX: K85.90 Acute pancreatitis without necrosis or infection, unspecified (principal); K42.9 Umbilical hernia without obstruction or gangrene; K59.00 Constipation, unspecified; Z20.822 Contact with and (suspected) exposure to COVID-19; I10 Essential (primary) hypertension; F10.10 Alcohol abuse, uncomplicated; K21.9 Gastro-esophageal reflux disease without esophagitis; F17.200 Nicotine dependence, unspecified, uncomplicated; Z79.899 Other long term (current) drug therapy
CPT/HCPCS: 36415; 71045; 74021; 74177; 80048; 80061; 80076; 80307; 82550; 83690; 83735; 84100; 84484; 85025; 87426; 93005; 96361; 96374; 96375; 96376; 99285; J1170; J2270; J7030; Q9967; U0003; U0005; G0378; G0379

== ENCOUNTER 2021-05-11 19:25 | Emergency (ER) | payer OTHER ==
[~2021-05-11] VITALS: Ht 180.3 cm; Wt 121.0 kg
[2021-05-11 20:49] VITALS: BP 155/111
[2021-05-11] MEDS ORDERED: BENZ100C PO (22:13)
[2021-05-11] MEDS ORDERED: CHLO1TB. PO (22:13)
--- NOTE | 2021-05-11 22:14 | PHYS DOC ---
Past Medical History Past Medical History: Anxiety, GERD, Hypertension Additional Past Medical Histor: Pancreatitis Past Surgical History: No Surgical History Smoking Status: Never Smoker Alcohol Use: Occasionally Drug Use: None General Adult EDM: Chief Complaint: Congestion HPI: HPI: Patient is a 30 year old male with history of hypertension and anxiety who presents the ED today to be evaluated for congestion. Patient states symptoms have been going for 3 days. He states 3 days ago he got exposed to children with RSV. Denies any fever. He states he had COVID-19 in September and does not want to be tested for it. He states he did not get the Covid vaccine Review of Systems: Review of Systems: Constitutional: Denies fever or chills. [] Eyes: Denies change in visual acuity. [] HENT: Reports nasal congestion, denies sore throat. [] Respiratory: Reports cough, denies shortness of breath. [] Cardiovascular: Denies chest pain or edema. [] GI: Denies abdominal pain, nausea, vomiting, bloody stools or diarrhea. [] : Denies dysuria. [] Musculoskeletal: Denies back pain or joint pain. [] Integument: Denies rash. [] Neurologic: Denies headache, focal weakness or sensory changes. [] Psychiatric: Denies depression or anxiety. [] Heart Score: C/O Chest Pain: N/A Risk Factors: Risk Factors: DM, Current or recent (<one month) smoker, HTN, HLP, family history of CAD, obesity. Risk Scores: Score 0 - 3: 2.5% MACE over next 6 weeks - Discharge Home Score 4 - 6: 20.3% MACE over next 6 weeks - Admit for Clinical Observation Score 7 - 10: 72.7% MACE over next 6 weeks - Early Invasive Strategies Allergies: Allergies: Allergies Coded Allergies Type Severity Reaction Last Updated Verified No Known Drug Allergies 08/02/20 No Physical Exam: PE: Constitutional: Well developed, well nourished, no acute distress, non-toxic appearance. [] HENT: Normocephalic, atraumatic, bilateral external ears normal, oropharynx moist, no oral exudates, nose normal. [] Eyes: PERRLA, EOMI, conjunctiva normal, no discharge. [] Neck: Normal range of motion, no tenderness, supple, no stridor. [] Cardiovascular:Heart rate regular rhythm, no murmur [] Lungs & Thorax: Bilateral breath sounds clear to auscultation [] Abdomen: Bowel sounds normal, soft, no tenderness, no masses, no pulsatile masses. [] Skin: Warm, dry, no erythema, no rash. [] Back: No tenderness, no CVA tenderness. [] Extremities: No tenderness, no cyanosis, no clubbing, ROM intact, no edema. [] Neurologic: Alert and oriented X 3, normal motor function, normal sensory function, no focal deficits noted. [] Psychologic: Affect normal, judgement normal, mood normal. [] Current Patient Data: Vital Signs: Vital Signs Date Time Temp Pulse Resp B/P (MAP) Pulse Ox O2 Delivery O2 Flow Rate FiO2 05/11/21 20:49 98.5 69 18 155/111 (126) 96 Room Air 98.5 EKG: EKG: [] Radiology/Procedures: Radiology/Procedures: [] Course & Med Decision Making: Course & Med Decision Making Pertinent Labs and Imaging studies reviewed. (See chart for details) This a 30-year-old male patient presenting to the ED today with cough and congestion that began 3 days ago after being exposed to RSV. Informed patient we did not do RSV testing on adults in the ED. Supportive care measures recommended. Discharged home Reina Disclaimer: Reina Disclaimer: This electronic medical record was generated, in whole or in part, using a voice recognition dictation system. Departure Departure Impression: Primary Impression: Cough Additional Impression: URI (upper respiratory infection) Qualified Codes: J06.9 - Acute upper respiratory infection, unspecified Disposition: HOME / SELF CARE / HOMELESS Condition: STABLE Referrals: UNKNOWN PCP NAME (PCP) follow up with your doctor in 1 week Patient Instructions: Cough, Adult, [id number], Upper Respiratory Infection, Adult, [id number] Additional Instructions: You were evaluated in the emergency room with symptoms consistent of an upper respiratory infection. Take Tylenol or Motrin as needed for fever or pain. Take the prescribed medications as needed for your symptoms. Follow-up with your doctor in 1 to 2 weeks, rest, push fluids. Maintain good hand hygiene Scripts Chlorphen/Dm/Acetaminophen/Gg (CORICIDIN HBP DAY-NIGHT PACK) 1 Each Tb.cp.seq 1 CAP PO BID for 14 Days, #28 CAP 0 Refills Prov: FIDELINA VELÁZQUEZ APRN 05/11/21 Benzonatate (TESSALON PERLE) 100 Mg Capsule 1 CAP PO TID, #30 CAP Prov: FIDELINA VELÁZQUEZ APRN 05/11/21 FIDELINA VELÁZQUEZ APRN May 11, 2021 22:14
== END 2021-05-11 22:30 | disposition home or self-care (01) ==
LOC: ER 19:25
DX: J06.9 Acute upper respiratory infection, unspecified (principal); K21.9 Gastro-esophageal reflux disease without esophagitis; I10 Essential (primary) hypertension
CPT/HCPCS: 99283

== ENCOUNTER 2021-08-07 06:45 | Emergency (ER) | payer OTHER ==
[~2021-08-07] VITALS: Ht 180.3 cm; Wt 100.0 kg
[~2021-08-07 06:45] MED LIST changes: +BENZ100C PO; +CHLO1TB. PO
--- NOTE | 2021-08-07 07:36 | PHYS DOC ---
Past Medical History Past Medical History: Anxiety, GERD, Hypertension Additional Past Medical Histor: Pancreatitis Past Surgical History: No Surgical History Smoking Status: Never Smoker Alcohol Use: None Drug Use: None Adult General Chief Complaint Chief Complaint: HEADACHE HPI HPI Patient is a 31 year old male present emergency department for 2 primary complaints the first of which is a migraine headache that has been going on for 2 days. He says it is pounding in the bilateral frontal area and has been constant for the 2 past days despite taking Tylenol for his pain. He says that he has not had migraine headaches recently and the last one he had he thinks was over 2 years ago. He says that this feels the same as the migraine headaches he experienced when he was younger. He says he has photophobia but no neck stiffness nausea vomiting fevers chills unilateral weakness numbness or tingling. Patient says that he also started experiencing chest pain last night that he describes as a sore sensation on the left side of his chest. He says it does not radiate to cause him shortness of breath diaphoresis nausea or vomiting and is not associate exertion. He says it does get worse with movements and palpation but he denies any exertion trauma or overuse. He is in no acute distress with normal vital signs and has a PERC score equal to 0. Review of Systems Review of Systems Constitutional: Denies fever or chills [] Eyes: Denies change in visual acuity, redness, or eye pain [] HENT: Denies nasal congestion or sore throat [] Respiratory: Denies cough or shortness of breath [] Cardiovascular: +CP GI: Denies abdominal pain, nausea, vomiting, bloody stools or diarrhea [] : Denies dysuria or hematuria [] Musculoskeletal: Denies back pain or joint pain [] Integument: Denies rash or skin lesions [] Neurologic: + headache. No focal weakness or sensory changes [] Endocrine: Denies polyuria or polydipsia [] All other systems were reviewed and found to be within normal limits, except as documented in this note. Current Medications Current Medications Current Medications Medications (Trade) Dose Ordered Sig/Maryellen Start Time Stop Time Status Last Admin Dose Admin Aspirin (Aspirin Chewable) 324 mg 1X ONCE 08/07/21 08:00 08/07/21 08:01 DC 08/07/21 08:13 324 MG Diphenhydramine HCl (Benadryl) 50 mg 1X ONCE 08/07/21 08:00 08/07/21 08:01 DC 08/07/21 08:18 50 MG Ketorolac Tromethamine (Toradol 15mg Vial) 15 mg 1X ONCE 08/07/21 08:00 08/07/21 08:01 DC 08/07/21 08:16 15 MG Prochlorperazine Edisylate (Compazine) 10 mg 1X ONCE 08/07/21 08:00 08/07/21 08:01 DC 08/07/21 08:21 10 MG Sodium Chloride 1,000 ml @ 1,000 mls/hr 1X ONCE 08/07/21 08:00 08/07/21 08:59 DC 08/07/21 08:12 1,000 MLS/HR Allergies Allergies Allergies Coded Allergies Type Severity Reaction Last Updated Verified No Known Drug Allergies 08/02/20 No Physical Exam Physical Exam Constitutional: Well developed, well nourished, no acute distress, non-toxic appearance. [] HENT: Normocephalic, atraumatic, bilateral external ears normal, oropharynx moist, no oral exudates, nose normal. [] Eyes: PERRLA, EOMI, conjunctiva normal, no discharge. [] Neck: Normal range of motion, no tenderness, supple, no stridor. [] Cardiovascular:Heart rate regular rhythm, no murmur [] Lungs & Thorax: Bilateral breath sounds clear to auscultation. + L upper chest wall reproducible ttp. Abdomen: Bowel sounds normal, soft, no tenderness, no masses, no pulsatile masses. [] Skin: Warm, dry, no erythema, no rash. [] Back: No tenderness, no CVA tenderness. [] Extremities: No tenderness, no cyanosis, no clubbing, ROM intact, no edema. [] Neurologic: Alert and oriented X 3, normal motor function, normal sensory function, no focal deficits noted. [] Psychologic: Affect normal, judgement normal, mood normal. [] Current Patient Data Vital Signs Vital Signs Date Time Temp Pulse Resp B/P (MAP) Pulse Ox O2 Delivery O2 Flow Rate FiO2 08/07/21 07:32 99.3 87 17 147/87 (107) 99 Room Air 99.3 Lab Values Laboratory Tests Test 08/07/21 08:05 White Blood Count 7.1 x10^3/uL (4.0-11.0) Red Blood Count 4.70 x10^6/uL (4.30-5.70) Hemoglobin 13.7 g/dL (13.0-17.5) Hematocrit 41.0 % (39.0-53.0) Mean Corpuscular Volume 87 fL (79-100) Mean Corpuscular Hemoglobin 29 pg (25-35) Mean Corpuscular Hemoglobin Concent 33 g/dL (31-37) Red Cell Distribution Width 15.2 % (11.5-14.5) H Platelet Count 308 x10^3/uL (140-400) Neutrophils (%) (Auto) 62 % (31-73) Lymphocytes (%) (Auto) 30 % (24-48) Monocytes (%) (Auto) 7 % (0-9) Eosinophils (%) (Auto) 0 % (0-3) Basophils (%) (Auto) 0 % (0-3) Neutrophils # (Auto) 4.4 x10^3/uL (1.8-7.7) Lymphocytes # (Auto) 2.2 x10^3/uL (1.0-4.8) Monocytes # (Auto) 0.5 x10^3/uL (0.0-1.1) Eosinophils # (Auto) 0.0 x10^3/uL (0.0-0.7) Basophils # (Auto) 0.0 x10^3/uL (0.0-0.2) Sodium Level 144 mmol/L (136-145) Potassium Level 3.8 mmol/L (3.5-5.1) Chloride Level 107 mmol/L (98-107) Carbon Dioxide Level 27 mmol/L (21-32) Anion Gap 10 (6-14) Blood Urea Nitrogen 16 mg/dL (8-26) Creatinine 1.2 mg/dL (0.7-1.3) Estimated GFR (Cockcroft-Gault) 86.6 BUN/Creatinine Ratio 13 (6-20) Glucose Level 95 mg/dL (70-99) Calcium Level 8.0 mg/dL (8.5-10.1) L Total Bilirubin 0.3 mg/dL (0.2-1.0) Aspartate Amino Transferase (AST) 34 U/L (15-37) Alanine Aminotransferase (ALT) 52 U/L (16-63) Alkaline Phosphatase 95 U/L (46-116) Troponin I High Sensitivity 13 ng/L (4-75) Total Protein 7.7 g/dL (6.4-8.2) Albumin 3.1 g/dL (3.4-5.0) L Albumin/Globulin Ratio 0.7 (1.0-1.7) L Laboratory Tests 08/07/21 08:05 Laboratory Tests 08/07/21 08:05 EKG EKG Normal sinus rhythm with no obvious ST elevation or depression normal intervals. Radiology/Procedures Radiology/Procedures Chest x-ray appeared normal with no acute pathology Course & Med Decision Making Course & Med Decision Making Patient with likely migraine headache and no worrisome signs or symptoms n ecessitating lumbar puncture or MRI. Patient has chest pain that is most likely costochondritis given his reproducible with palpation. I will check basic labs treat his symptoms and reassess. Patient has a heart score equal to 0. Patient had normal EKG and troponin more than 6 hours out from the onset of symptoms and he says that his chest pain and headache have almost completely resolved and he is feeling well and would like to go home. Given patient appears well with normal vital signs benign physical exam work-up she will be discharged in stable condition told to follow with primary care provider within 2 to 3 days for recheck and come back to emergency department sooner with worsening pain headache neurologic changes shortness of breath or other general concerns. Patient aware and agreeable with plan and verbalized understanding of the above instructions. Dragon Disclaimer Dragon Disclaimer This electronic medical record was generated, in whole or in part, using a voice recognition dictation system. Departure Departure Impression: Primary Impression: Chest wall pain Additional Impression: Headache Disposition: HOME / SELF CARE / HOMELESS Condition: GOOD Referrals: NO PCP (PCP) Patient Instructions: Migraine Headache, [id number] Additional Instructions: Take ibuprofen and Tylenol for pain and drink plenty of fluids. Benadryl every 4-6 hours can help your headache as well. Follow-up with primary care provider within 2 to 3 days for recheck and come back to emergency department sooner with worsening pain neurologic changes or other general concerns. Scripts Ondansetron (ONDANSETRON ODT) 4 Mg Tab.rapdis 4 MG PO Q6HRS PRN for NAUSEA/VOMITING, #10 TAB Prov: JAMIE MADRIGAL DO 08/07/21 Problem Qualifiers Additional Impression: Headache Headache type: unspecified Headache chronicity pattern: unspecified pattern Intractability: not intractable Qualified Codes: R51.9 - Headache, unspecified JAMIE MADRIGAL DO Aug 07, 2021 07:36
[2021-08-07] MEDS ORDERED: KETOROLAC 15 MG/ML VIAL. IVP ONE (08:00)
[2021-08-07] MEDS ORDERED: PROCHLORPERAZINE 10 MG/2 ML VIAL. IV ONE (08:00)
[2021-08-07] MEDS ORDERED: IV NORMAL SALINE 1000ML BAG 1,000 ML IV ONE (08:00)
[2021-08-07] MEDS ORDERED: diphenhydrAMINE 50 MG/ML VIAL IVP ONE (08:00)
[2021-08-07] MEDS ORDERED: ASPIRIN CHEWABLE 81 MG TABLET. PO ONE (08:00)
[2021-08-07 08:19] LABS: BASO % 0 % (0-3); EOS % 0 % (0-3); HEMOGLOBIN 13.7 g/dL (13.0-17.5); LYMPH # 2.2 x10^3/uL (1.0-4.8); LYMPH % 30 % (24-48); MEAN CORPUSCULAR HEMOGLOBIN 29 pg (25-35); MEAN CORPUSCULAR HGB CONC 33 g/dL (31-37); MEAN CORPUSCULAR VOLUME 87 fL (79-100); MONO # 0.5 x10^3/uL (0.0-1.1); MONO % 7 % (0-9); NEUT # 4.4 x10^3/uL (1.8-7.7); NEUT % 62 % (31-73); PLATELET COUNT 308 x10^3/uL (140-400); RED CELL DISTRIBUTION WIDTH 15.2 % (11.5-14.5); WHITE BLOOD COUNT 7.1 x10^3/uL (4.0-11.0)
--- NOTE | 2021-08-07 08:34 | RAD ---
EXAMINATION: XR CHEST 1V CLINICAL HISTORY: Left-sided chest pain. EXAM DATE/TIME: 08/07/2021 8:20 AM COMPARISON: 04/22/2021 FINDINGS: Lines, Tubes, and Devices: None. Cardiomediastinal Silhouette: Within normal limits. Lungs and Pleura: No evidence of focal airspace consolidation or pleural effusion. Pulmonary vasculat ure unremarkable. Bones and Soft Tissues: No acute osseous abnormality. IMPRESSION: No evidence of acute cardiopulmonary abnormality or significant interval change. Electronically signed by: Flaco Stratton DO (08/07/2021 8:32 AM) [id number]
[2021-08-07 08:45] LABS: CREATININE 1.2 mg/dL (0.7-1.3); GFR 86.6; POTASSIUM 3.8 mmol/L (3.5-5.1)
[2021-08-07 08:59] LABS: ALBUMIN 3.1 g/dL (3.4-5.0); ALBUMIN/GLOBULIN RATIO 0.7 (1.0-1.7); TOTAL BILIRUBIN 0.3 mg/dL (0.2-1.0); TOTAL PROTEIN 7.7 g/dL (6.4-8.2)
[2021-08-07] MEDS ORDERED: ONDA4TAB12 PO (09:32)
[2021-08-07] MEDS ORDERED: HYDR-2761 PO ×5 (09:32→10:23)
[2021-08-07 10:11] VITALS: BP 107/73
--- NOTE | 2021-08-07 17:31 | EKG ---
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
== END 2021-08-07 10:33 | disposition home or self-care (01) ==
LOC: ER 06:45
DX: R07.89 Other chest pain (principal); G43.909 Migraine, unspecified, not intractable, without status migrainosus; K21.9 Gastro-esophageal reflux disease without esophagitis; I10 Essential (primary) hypertension
CPT/HCPCS: 36415; 71045; 80053; 84484; 85025; 93005; 96361; 96374; 96375; 99285; J0780; J1200; J1885; J7030